=== PATIENT | female | born 1950 | race Caucasian/White ===

== ENCOUNTER 2018-03-06 11:49 | Day surgery (SDC) | payer OTHER ==
[2018-03-06] MEDS ORDERED: PROPOFOL 40 ML (13:15)
[2018-03-06] MEDS ORDERED: MIDAZOLAM 1 MG/ML 2 ML INJ (13:15)
[2018-03-06] MEDS ORDERED: LIDOCAINE 2% (SDV) 5 ML INJ (13:15)
== END 2018-03-06 16:20 | disposition home or self-care (01) ==
LOC: GIL 11:49
DX: Z12.11 Encounter for screening for malignant neoplasm of colon (principal); D12.6 Benign neoplasm of colon, unspecified; K64.8 Other hemorrhoids; I10 Essential (primary) hypertension
CPT/HCPCS: 45380; 88305